=== PATIENT | female | born 1945 | race Caucasian/White ===

== ENCOUNTER 2018-03-08 09:47 | Outpatient (CLI) | payer MEDICARE, BC | END 2018-03-08 09:48 | disposition home or self-care (01) | LOC: BICMAMMO 09:47 | PROVIDERS: ATTEND Obstetrics & Gynecology | DX: Z12.31 Encounter for screening mammogram for malignant neoplasm of breast (principal); Z80.3 Family history of malignant neoplasm of breast | CPT/HCPCS: 77063; 77067 ==

== ENCOUNTER 2018-06-28 13:13 | Outpatient (CLI) | payer MEDICARE, BC ==
--- NOTE | 2018-06-28 15:07 | MRI ---
LUMBAR SPINE MRI WITHOUT IV CONTRAST: Date: 06/28/18 HISTORY: 72-year-old female with history of lumbar radiculopathy and chronic low back pain. History of prior b ack surgery. TECHNIQUE: Multiplanar, multisequence MRI examination of the lumbar spine is performed. FINDINGS: Bilateral prominent parapelvic cysts are noted, showing little change from prior study of 10/21/15. There are generalized disc desiccation changes and ligament and facet hypertrophic changes. At T12-L1 and L1-L2, there is no significant canal or foraminal stenosis. At L2-L3, there is diffuse disc osteophytosis with severe right lateral recess stenosis and moderate central canal and left lateral recess stenosis, and severe right foraminal stenosis and mild left for aminal stenosis. At L3-L4, severe disc bulging and ligament and facet hypertrophic changes with severe central spinal canal stenosis and lateral recess stenosis, with some worsening when compared to the prior exam. Bila teral foraminal stenosis, much worse on the right side. At L4-L5, there is moderate central canal and bilateral recess stenosis with severe bilateral foramin al stenosis, worse on the left side. At L5-S1, no significant central canal or lateral recess stenosis. Moderate to severe left foraminal stenosis and mild right foraminal stenosis. Very subtle Type I end plate changes at L2-L3, improved f rom prior study. IMPRESSION: Variable severity multilevel canal, lateral recess, and foraminal stenosis, most marked at L4-L5, L3- L4, and L2-L3 levels as above. POS: KENTRELL
== END 2018-06-28 13:14 | disposition home or self-care (01) ==
LOC: SCSMRI 13:13
PROVIDERS: ATTEND Specialist
DX: M54.16 Radiculopathy, lumbar region (principal); M48.061 Spinal stenosis, lumbar region without neurogenic claudication; M99.83 Other biomechanical lesions of lumbar region
CPT/HCPCS: 72148

== ENCOUNTER 2019-03-09 12:58 | Outpatient (CLI) | payer MEDICARE, BC ==
--- NOTE | 2019-03-09 14:01 | MMO ---
Bilateral MAMMO Bilat Screen [facility]. CLINICAL HISTORY: Patient is 73 years old and is seen for screening. The patient has the following family history of breast cancer: mother. The patient has a history of uterine cancer. VIEWS: The views performed were: bilateral craniocaudal with tomosynthesis and bilateral mediolateral oblique with tomosynthesis. FILMS COMPARED: The present examination has been compared to a prior imaging study performed at [facility] [place] on 03/08/2018. MAMMOGRAM FINDINGS: There are scattered fibroglandular densities. There are stable benign appearing calcifications seen in both breasts. There are no suspicious masses, suspicious calcifications, or new areas of architectural distortion. IMPRESSION: THERE IS NO MAMMOGRAPHIC EVIDENCE OF MALIGNANCY. A ROUTINE FOLLOW-UP MAMMOGRAM IN 1 YEAR IS RECOMMENDED. THE RESULTS OF THIS EXAM WERE SENT TO THE PATIENT. ACR BI-RADS Category 2 - Benign finding MAMMOGRAPHY NOTE: 1. A negative mammogram report should not delay a biopsy if a dominant of clinically suspicious mass is present. 2. Approximately 10% to 15% of breast cancers are not detected by mammography. 3. Adenosis and dense breasts may obscure an underlying neoplasm.
--- NOTE | 2019-03-09 14:43 | BD ---
BONE DENSITOMETRY USING DEXA: HISTORY: Postmenopausal screening for osteoporosis. FINDINGS: BMD (g/cm2) Right Hip Neck: 0.586 T-Score: -2.4 Z-Score: -0.4 Total: 0.696 T-Score: -2.0 Z-Score: -0.4 Left Hip Neck: 0.544 T-Score: -2.8 Z-Score: 0.8 Total: 0.679 T-Score: -2.2 Z-Score: 0.5 There has been interval reduction of 12.9% in the BMD of the left proximal femur since 02/25/2014. Impression: Osteoporosis. POS: KENTRELL
== END 2019-03-09 12:59 | disposition home or self-care (01) ==
LOC: BICMAMMO 12:58
PROVIDERS: ATTEND Obstetrics & Gynecology
DX: Z12.31 Encounter for screening mammogram for malignant neoplasm of breast (principal); Z13.820 Encounter for screening for osteoporosis; M81.0 Age-related osteoporosis without current pathological fracture; Z80.3 Family history of malignant neoplasm of breast
CPT/HCPCS: 77063; 77067; 77080

== ENCOUNTER 2020-10-13 08:35 | Outpatient (CLI) | payer MEDICARE, BC ==
--- NOTE | 2020-10-13 11:47 | MRI ---
MRI Lumbar Spine Noncontrast: HISTORY: Lumbar radiculopathy. Right hip leg and groin pain for 2 months. COMPARISON: None FINDINGS: There are findings suggestive of parapelvic renal cysts. A few subcentimeter hyperintense signal inte nsity lesions are seen in the kidneys bilaterally which are difficult to characterize but statistically are likely related to small cysts. Remainder of the retroperitoneal structures demonstr ate a normal nonenhanced MRI appearance. There is metallic susceptibility artifact seen in the subcutaneous soft tissues posterior right glute al region near the lower aspect of the right sacroiliac joint with metallic susceptibility artifact extending a linear fashion to the T11-12 level and subsequently ascending in the central canal. Findi ngs are most compatible with a dorsal column stimulator device. Conus medullaris is normal in morphology and terminates at the L1 level. Paravertebral soft tissues have a normal appearance. Left convex scoliosis lumbar spine. T11-12: Mild disc osteophyte complex present. This narrows the ventral subarachnoid space and neural foramina appear patent. T12-L1: No disc bulge or disc herniation. Central spinal canal and neural foramina are patent L1-2: Mild disc osteophyte complex results in slight flattening of the ventral subarachnoid space. Mi ld facet degenerative changes are present. The left neural foramen is patent, but there is mild right-sided neural foraminal narrowing. L2-3: Loss of intervertebral disc height. Broad-based disc osteophyte complex is present with right p aracentral disc protrusion. There is generalized mild narrowing of the central spinal canal. Moderate facet hypertrophic changes are present. Left neural foramen is patent, but there is moderate to severe right-sided neural foraminal narrowing. L3-4: Loss of intervertebral disc height. Broad-based disc osteophyte complex is present. Trace anter olisthesis of L3 on L4 is present measuring approximately 4 mm. Severe right and mild left-sided neural foraminal narrowing is present. Moderate to severe central canal narrowing is present. L4-5: Loss of intervertebral disc height with mild endplate degenerative changes. Broad-based disc os teophyte complex is present. Facet hypertrophic changes and ligamentous thickening are present. There is mild/moderate central canal narrowing with severe left and moderate to severe right-sided ne ural foraminal narrowing. L5-S1: Loss of intervertebral disc height. No significant disc bulge is present at this level. There are facet hypertrophic changes present. There is suggestion of moderate left and mild to moderate right-sided neural foraminal narrowing. 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 IMPRESSION: 1. Multilevel degenerative changes in the lumbar spine with varying degrees of moderate and severe ne ural foraminal narrowing. Moderate to severe central canal narrowing is present at the L3-4 level. 2. Left convex scoliosis.
== END 2020-10-13 08:36 | disposition home or self-care (01) ==
LOC: MRI 08:35
PROVIDERS: ATTEND Nurse Practitioner Family
DX: M47.26 Other spondylosis with radiculopathy, lumbar region (principal); M41.86 Other forms of scoliosis, lumbar region; M48.061 Spinal stenosis, lumbar region without neurogenic claudication; M48.07 Spinal stenosis, lumbosacral region
CPT/HCPCS: 72148

== ENCOUNTER 2020-10-20 10:10 | Emergency (ER) | payer MEDICARE, BC ==
[2020-10-20 12:00] LABS: Bacteria/HPF None Seen HPF (None Seen); Bilirubin Negative (Negative); Blood, Urine Negative (Negative); Clarity Clear (Clear); Glucose, Urine (Dipstick) Normal (Negative); Ketone, Urine 10 mg/dL (Negative); Leukocyte 500 Leu/uL (Negative); Nitrite Negative (Negative); Protein, Urine (Dipstick) 20 mg/dL (Neg-Trace); RBC/HPF 0-3 HPF (0-3); Specific Gravity, Urine 1.034 (1.002-1.036); Squamous Epithelial 0-3 HPF (0-3); Urobilinogen Normal mg/dL (Less than 2); WBC/HPF 0-3 HPF (0-3)
[2020-10-20] MEDS ORDERED: HYDROcodone/Acetaminophen 5/325 mg Tablet ONE (12:19)
[2020-10-20] MEDS ORDERED: Ketorolac Tromethamine 30 MG/ML VIAL ONE (12:19)
[2020-10-20] MEDS ORDERED: predniSONE 20 MG TAB ONE (13:23)
== END 2020-10-20 14:40 | disposition home or self-care (01) ==
LOC: ERS 10:10
DX: M48.061 Spinal stenosis, lumbar region without neurogenic claudication (principal); M51.36 Other intervertebral disc degeneration, lumbar region; E11.9 Type 2 diabetes mellitus without complications; I10 Essential (primary) hypertension
CPT/HCPCS: 81003; 81015; 96372; 99283; J1885; J7512

== ENCOUNTER 2021-01-07 09:20 | Outpatient (CLI) | payer MEDICARE, BC ==
[2021-01-07 12:18] LABS: Anion Gap 18 mmol/L (10-20); BUN (Urea Nitrogen) 20 mg/dL (9.8-20.1); Calc. Creatinine Clearance 0 mL/min (70-130); Calcium 9.9 mg/dL (7.8-10.44); Carbon Dioxide 28 mmol/L (23-31); Chloride 99 mmol/L (98-107); Glucose 165 mg/dL (83-110); Potassium 4.6 mmol/L (3.5-5.1); Sodium 140 mmol/L (136-145)
[2021-01-07 12:27] LABS: Hemoglobin 12.5 g/dL (12.0-15.5); Mean Corpuscular HGB CONC 30.9 g/dL (32.0-36.0); Mean Corpuscular Hemoglobin 28.7 pg (27.0-33.0); Mean Corpuscular Volume 92.9 fl (81.6-98.3); Mean Platelet Volume 9.1 fl (7.4-10.4); Platelet Count 385 10x3/uL (150-450); RBC Distribution Width 13.2 % (11.5-14.5); Red Blood Cell (RBC) Count 4.35 10x6/uL (3.90-5.03); White Blood Cell (WBC) Count 8.9 10x3/uL (3.5-10.5)
[2021-01-07 22:06] LABS: SARS-CoV-2 PCR by NAA Not Detected (NotDetected)
== END 2021-01-07 09:21 | disposition home or self-care (01) ==
LOC: LABBT 09:20
PROVIDERS: ATTEND Neurological Surgery
DX: Z01.818 Encounter for other preprocedural examination (principal); M54.16 Radiculopathy, lumbar region; Z20.822 Contact with and (suspected) exposure to COVID-19
CPT/HCPCS: 80048; 85027; 93005; U0003; U0005; 87635; 93010

== ENCOUNTER 2021-01-12 09:58 | Inpatient (IN) | payer MEDICARE, BC ==
[2021-01-08 13:39] VITALS: BMI 19.3
[2021-01-12] MEDS ORDERED: Lidocaine 1% PF 5 ML VIAL ONE (12:00)
[2021-01-12] MEDS ORDERED: Ondansetron PF 4 MG/2 ML Vial ONE (12:00)
[2021-01-12] MEDS ORDERED: Glycopyrrolate 0.2 MG/ML 5 ML SYRINGE ONE (12:00)
[2021-01-12] MEDS ORDERED: Dexamethasone 20 MG/5 ML VIAL ONE (12:00)
[2021-01-12] MEDS ORDERED: Rocuronium Bromide 10 MG/ML (10ML VIAL) ONE (12:00)
[2021-01-12] MEDS ORDERED: PHENYLEPHRINE-NS 100 MCG/ML 10 ML SYRINGE ONE (12:00)
[2021-01-12] MEDS ORDERED: PROPOFOL 200 MG/20 ML VIAL ONE (12:00)
[2021-01-12] MEDS ORDERED: Fentanyl 100 MCG/2 ML VIAL ONE ×3 (12:44→15:21)
[2021-01-12] MEDS ORDERED: Ondansetron HCl/PF 4 MG/2 ML Vial IVP PRN (14:49)
[2021-01-12] MEDS ORDERED: Promethazine HCl 25 MG/ML VIAL SLOW IVP PRN (14:49)
[2021-01-12] MEDS ORDERED: Promethazine HCl 25 MG/ML VIAL IM PRN ×2 (14:49→15:30)
[2021-01-12] MEDS ORDERED: tiZANidine HCl 4 MG TAB PO PRN (15:30)
[2021-01-12] MEDS ORDERED: Promethazine HCl 12.5 MG SUPP PR PRN (15:30)
[2021-01-12] MEDS ORDERED: diphenhydrAMINE 50 MG/ML VIAL IVP PRN (15:30)
[2021-01-12] MEDS ORDERED: diphenhydrAMINE 25 MG CAP PO PRN (15:30)
[2021-01-12] MEDS ORDERED: Mag-Al 1200 mg/1200 mg/30 ML UDCUP PO PRN (15:30)
[2021-01-12] MEDS ORDERED: Morphine 2 MG/ML VIAL SLOW IVP PRN (15:30)
[2021-01-12] MEDS ORDERED: Promethazine 25 MG TAB PO PRN (15:30)
[2021-01-12] MEDS ORDERED: Morphine 4 MG/ML VIAL SLOW IVP PRN (15:30)
[2021-01-12] MEDS ORDERED: traMADol HCl 50 MG TAB PO PRN ×2 (15:30)
[2021-01-12] MEDS ORDERED: HYDROcodone/Acetaminophen 10/325 mg Tablet PO PRN ×2 (15:30)
[2021-01-12] MEDS ORDERED: Milk Of Magnesia 30 ML UDCUP PO PRN (15:30)
[2021-01-12] MEDS ORDERED: Ondansetron PF 4 MG/2 ML Vial IM PRN (15:30)
[2021-01-12] MEDS: Sodium Chloride 0.9% 1,000 ML IV SCH (18:03)
[2021-01-12] MEDS: Clindamycin/D5W 900 MG in Premix Bag 1 BAG IVPB SCH (22:07)
[2021-01-13] MEDS ORDERED: Dextrose 50% Abboject 50 ML SYRINGE SLOW IVP PRN (00:28)
[2021-01-13] MEDS ORDERED: HumaLOG 300 UNITS/3 ML VIAL SC PRN ×2 (00:28)
[2021-01-13] MEDS ORDERED: Dextrose 5% in Water 1,000 ML IV PRN (00:28)
[2021-01-13] MEDS ORDERED: Acetaminophen 325 MG TAB PO PRN (00:29)
[2021-01-13] MEDS ORDERED: Acetaminophen 650 MG Suppository PR PRN (00:29)
[2021-01-13] MEDS: Sodium Chloride 0.9% 1,000 ML IV SCH ×2 (05:05→17:23)
[2021-01-13 05:27] LABS: #Basophils 0.1 thou/uL (0.0-0.2); #Eosinphils 0.1 thou/uL (0.0-0.7); #Lymphocytes 2.3 thou/uL (1.20-3.40); #Neutrophils 7.7 thou/uL (1.40-6.50); %Basophils 0.9 % (0.0-1.0); %Eosinophils 0.8 % (0.0-10.0); %Lymphocytes 20.2 % (21.0-51.0); %Monocytes 9.4 % (0.0-10.0); %Neutrophils 68.8 % (42.0-75.0); Hemoglobin 10.8 g/dL (12.0-16.0); Mean Corpuscular HGB CONC 32.5 g/dL (32.0-36.0); Mean Corpuscular Hemoglobin 30.1 pg (27.0-31.0); Mean Corpuscular Volume 92.5 fL (78.0-98.0); Mean Platelet Volume 6.5 fL (7.4-10.4); Platelet Count 363 thou/uL (130-400); Red Blood Cell (RBC) Count 3.58 mill/uL (4.20-5.40); White Blood Cell (WBC) Count 11.2 thou/uL (4.8-10.8)
[2021-01-13 05:44] LABS: Anion Gap 14 mmol/L (10-20); BUN (Urea Nitrogen) 13 mg/dL (9.8-20.1); Calc. Creatinine Clearance 57 mL/min (70-130); Calcium 8.3 mg/dL (7.8-10.44); Carbon Dioxide 25 mmol/L (23-31); Chloride 104 mmol/L (98-107); Glucose 96 mg/dL (83-110); Potassium 4.2 mmol/L (3.5-5.1); Sodium 139 mmol/L (136-145)
[2021-01-13] MEDS: Clindamycin/D5W 900 MG in Premix Bag 1 BAG IVPB SCH ×3 (05:58→22:12)
[2021-01-13] MEDS ORDERED: RASAGILINE MESYLATE 1 MG PO SCH (09:00)
[2021-01-13] MEDS ORDERED: Non-Formulary Item 1 EACH (Carbidopa/Levodopa [Rytary Er] 48.75 MG/195 MG Capsule.Er) PO SCH (09:00)
[2021-01-13] MEDS: Multivit, Therapeutic 1 TAB PO SCH (09:56)
[2021-01-13] MEDS: Calcium Carbonate 600 MG + Vit D TAB PO SCH (09:57)
[2021-01-13] MEDS: Hydrochlorothiazide 25 MG TAB PO SCH (09:57)
[2021-01-13] MEDS: Valsartan 80 MG TAB PO SCH (09:58)
[2021-01-13] MEDS: Carbidopa/Levodopa [Rytary Er] 48.75 MG/195 MG Capsule.Er PO SCH ×3 (12:18→20:21)
[2021-01-13] MEDS ORDERED: Polyethylene Glycol 3350 17 GM Packet PO SCH (14:15)
[2021-01-13] MEDS: JANUMET PO SCH (20:21)
[2021-01-14] MEDS: Sodium Chloride 0.9% 1,000 ML IV SCH ×2 (01:56→20:59)
[2021-01-14] MEDS: Clindamycin/D5W 900 MG in Premix Bag 1 BAG IVPB SCH (05:55)
[2021-01-14] MEDS: Non-Formulary Item 1 EACH (Cinnamon Bark [Cinnamon] 500 MG Capsule) PO SCH (07:49)
[2021-01-14] MEDS: Non-Formulary Item 1 EACH (Glucosam/Chondr-Msm1/D3/C/Mang [Glucosamine Chondroitin Comple PO SCH (07:49)
[2021-01-14] MEDS: Hydrochlorothiazide 25 MG TAB PO SCH (08:47)
[2021-01-14] MEDS: Cephalexin 250 MG CAP PO SCH ×4 (08:48→20:57)
[2021-01-14] MEDS: Calcium Carbonate 600 MG + Vit D TAB PO SCH (08:48)
[2021-01-14] MEDS: Multivit, Therapeutic 1 TAB PO SCH (08:48)
[2021-01-14] MEDS: Carbidopa/Levodopa [Rytary Er] 48.75 MG/195 MG Capsule.Er PO SCH ×4 (08:49→20:58)
[2021-01-14] MEDS: JANUMET PO SCH ×2 (08:49→20:58)
[2021-01-14] MEDS: Valsartan 80 MG TAB PO SCH (08:52)
[2021-01-15] MEDS: Calcium Carbonate 600 MG + Vit D TAB PO SCH (08:22)
[2021-01-15] MEDS: Cephalexin 250 MG CAP PO SCH ×4 (08:22→20:04)
[2021-01-15] MEDS: Multivit, Therapeutic 1 TAB PO SCH (08:22)
[2021-01-15] MEDS: Carbidopa/Levodopa [Rytary Er] 48.75 MG/195 MG Capsule.Er PO SCH ×4 (08:23→20:03)
[2021-01-15] MEDS: JANUMET PO SCH ×2 (08:23→20:03)
[2021-01-15] MEDS: Hydrochlorothiazide 25 MG TAB PO SCH (08:25)
[2021-01-15] MEDS: Valsartan 80 MG TAB PO SCH (08:25)
[2021-01-15] MEDS: Sodium Chloride 0.9% 1,000 ML IV SCH (08:38)
[2021-01-15 22:21] VITALS: BP 119/74; TEMP 98.2
== END 2021-01-15 21:28 | DRG 460 ==
LOC: SDC 09:58 → SURG B 14:56 → OBSVTOIN 01-13 16:34
PROVIDERS: ADMIT Neurological Surgery; ATTEND Neurological Surgery
PROC: 0SG0071 Fusion of Lumbar Vertebral Joint with Autologous Tissue Substitute, Posterior Approach, Posterior Column, Open Approach (ICD-10-PCS; principal; 2021-01-12)
DX: M54.16 Radiculopathy, lumbar region (principal); Z85.42 Personal history of malignant neoplasm of other parts of uterus; G89.29 Other chronic pain; G20 Parkinson's disease; E11.9 Type 2 diabetes mellitus without complications; I10 Essential (primary) hypertension; Z90.710 Acquired absence of both cervix and uterus; Z98.42 Cataract extraction status, left eye; Z98.41 Cataract extraction status, right eye; Z79.82 Long term (current) use of aspirin; Z79.84 Long term (current) use of oral hypoglycemic drugs
CPT/HCPCS: 36415; 36416; 76000; 80048; 85025; 96365; 96375; 96376; C1713; C1768; G0378; J0690; J1100; J2270; J2405; J2704; J3010; J3370; J3490

== ENCOUNTER 2021-01-28 09:05 | Outpatient (CLI) | payer MEDICARE, BC | END 2021-01-28 09:06 | disposition home or self-care (01) | LOC: TBSIIMAG 09:05 | PROVIDERS: ATTEND Neurological Surgery | DX: M47.26 Other spondylosis with radiculopathy, lumbar region (principal); Z98.890 Other specified postprocedural states | CPT/HCPCS: 72100 ==

== ENCOUNTER 2021-03-09 06:58 | Day surgery (SDC) | payer MEDICARE, BC ==
[2021-03-09 07:40] VITALS: BP 156/92; TEMP 99.4
[2021-03-09] MEDS ORDERED: Iopamidol-M 200 41% 20 ML VIAL ONE (11:20)
== END 2021-03-09 09:50 | disposition home or self-care (01) ==
LOC: RAD 06:58
PROVIDERS: ATTEND Neurological Surgery
PROC: B02B1ZZ Computerized Tomography (CT Scan) of Spinal Cord using Low Osmolar Contrast (ICD-10-PCS; principal; 2021-03-09)
DX: M51.16 Intervertebral disc disorders with radiculopathy, lumbar region (principal); M48.061 Spinal stenosis, lumbar region without neurogenic claudication; M43.16 Spondylolisthesis, lumbar region; M41.86 Other forms of scoliosis, lumbar region; I70.0 Atherosclerosis of aorta; G20 Parkinson's disease; E11.9 Type 2 diabetes mellitus without complications; I10 Essential (primary) hypertension; Z79.84 Long term (current) use of oral hypoglycemic drugs; Z79.899 Other long term (current) drug therapy; Z98.1 Arthrodesis status
CPT/HCPCS: 62304; 72132; Q9966

== ENCOUNTER 2021-04-29 09:10 | Outpatient (CLI) | payer MEDICARE, BC ==
[2021-04-29 11:40] LABS: Hemoglobin 12.5 g/dL (12.0-15.5); Mean Corpuscular HGB CONC 31.3 g/dL (32.0-36.0); Mean Corpuscular Hemoglobin 27.8 pg (27.0-33.0); Mean Corpuscular Volume 89.1 fl (81.6-98.3); Platelet Count 350 10x3/uL (150-450); RBC Distribution Width 13.9 % (11.5-14.5); Red Blood Cell (RBC) Count 4.49 10x6/uL (3.90-5.03); White Blood Cell (WBC) Count 10.2 10x3/uL (3.5-10.5)
[2021-04-29 12:10] LABS: Anion Gap 19 mmol/L (10-20); BUN (Urea Nitrogen) 22 mg/dL (9.8-20.1); Calc. Creatinine Clearance 0 mL/min (70-130); Calcium 10.4 mg/dL (7.8-10.44); Carbon Dioxide 25 mmol/L (23-31); Chloride 97 mmol/L (98-107); Glucose 130 mg/dL (83-110); Potassium 4.3 mmol/L (3.5-5.1); Sodium 137 mmol/L (136-145)
== END 2021-04-29 09:11 | disposition home or self-care (01) ==
LOC: LABBT 09:10
PROVIDERS: ATTEND Transplant Surgery
DX: Z01.818 Encounter for other preprocedural examination (principal); M54.16 Radiculopathy, lumbar region
CPT/HCPCS: 80048; 85027; 93005; 93010

== ENCOUNTER 2021-06-11 12:01 | Outpatient (CLI) | payer MEDICARE, BC ==
[2021-06-11 23:41] LABS: SARS-CoV-2 PCR by NAA Not Detected (NotDetected)
== END 2021-06-11 12:02 | disposition home or self-care (01) ==
LOC: LABBT 12:01
PROVIDERS: ATTEND Specialist
DX: Z01.812 Encounter for preprocedural laboratory examination (principal); M96.1 Postlaminectomy syndrome, not elsewhere classified; G89.29 Other chronic pain; Z20.822 Contact with and (suspected) exposure to COVID-19
CPT/HCPCS: U0003; U0005

== ENCOUNTER 2021-07-20 11:58 | Outpatient (CLI) | payer MEDICARE, BC ==
[2021-07-20 21:50] LABS: SARS-CoV-2 PCR by NAA Not Detected (NotDetected)
== END 2021-07-20 11:59 | disposition home or self-care (01) ==
LOC: LABBT 11:58
PROVIDERS: ATTEND Specialist
DX: Z01.812 Encounter for preprocedural laboratory examination (principal); Z20.822 Contact with and (suspected) exposure to COVID-19
CPT/HCPCS: U0003; U0005

== ENCOUNTER 2021-07-23 09:28 | Day surgery (SDC) | payer MEDICARE, BC ==
[2021-06-12 12:22] VITALS: BMI 18.6
[2021-07-23] MEDS ORDERED: Propofol 500 MG/50 ML VIAL ONE (11:14)
[2021-07-23] MEDS ORDERED: EPINEPHrine 1 MG/ML AMP ONE (11:23)
[2021-07-23] MEDS ORDERED: Bupivacaine PF 0.5% 30 ML VIAL ONE (11:23)
== END 2021-07-23 13:36 | disposition home or self-care (01) ==
LOC: SDC 09:28
PROVIDERS: ATTEND Specialist
PROC: 0JH70MZ Insertion of Stimulator Generator into Back Subcutaneous Tissue and Fascia, Open Approach (ICD-10-PCS; principal; 2021-07-23)
DX: M96.1 Postlaminectomy syndrome, not elsewhere classified (principal); G89.4 Chronic pain syndrome; M54.16 Radiculopathy, lumbar region; Z79.2 Long term (current) use of antibiotics; Z79.82 Long term (current) use of aspirin; Z79.84 Long term (current) use of oral hypoglycemic drugs; Z79.899 Other long term (current) drug therapy; Z98.1 Arthrodesis status
CPT/HCPCS: 76000; J0171; J2704; J3370; S0020